=== PATIENT | female | born 1955 | race Hispanic/Latino ===

== ENCOUNTER 2025-05-23 09:47 | Emergency (ER) | payer MEDICARE ==
[~2025-05-23] VITALS: Ht 152.4 cm; Wt 62.0 kg
[2025-05-23] MEDS ORDERED: KETOROLAC TROMETHAMINE 15 MG/ML VIAL IV ONE (11:45)
[2025-05-23 12:02] LABS: BASOPHILS 0.7 % (0.1-1.2); EOSINOPHILS 0.7 % (0.7-5.8); LYMPHOCYTES 15.5 % (19.3-51.7); MCH 31.1 PG (25.6-32.2); MCHC 34.0 g/dL (32.2-35.5); MCV 91.3 fL (79.4-94.8); MONOCYTES 4.9 % (4.7-12.5); NEUTROPHILS 77.8 % (34.0-71.1); RBC 4.25 M/uL (3.93-5.22)
[2025-05-23 12:27] LABS: ALT (SGPT) 8 U/L (14-59); AST (SGOT) 10 U/L (15-37); GLOMERULAR FILTRATION RATE,EST 98 mL/min (>60); PROTEIN, TOTAL 7.3 g/dL (6.4-8.2); UREA NITROGEN 11 mg/dL (7-18)
[2025-05-23 12:40] LABS: INFLUENZA B NAA NEGATIVE (NEGATIVE); RESPIRATORY SYNCYTIAL VIR NAA NEGATIVE (NEGATIVE)
[2025-05-23] MEDS ORDERED: NAPROSYN500 MG PO (14:11)
[2025-05-23] MEDS ORDERED: LIDODERM1 EACH TOP (14:12)
[2025-05-23 14:15] VITALS: BP 113/52
--- NOTE | 2025-05-24 21:38 | EKG ---
[facility] [address] [facility] [place] [address] Signed Normal sinus rhythm Normal ECG No previous ECGs available Confirmed by Radha Patel MD () on 05/24/2025 9:38:34 PM Electronically Signed By: RADHA PATEL MD 05/24/25 2138 PATIENT NAME: [id number] Electrocardiogram DATE OF : 53 PHYSICIAN: RADHA PATEL MD REPORT #: [id number] REPORT IS CONFIDENTIAL AND NOT TO BE RELEASED WITHOUT AUTHORIZATION
== END 2025-05-23 14:13 | disposition home or self-care (01) ==
LOC: ED 09:47
PROVIDERS: Emergency Medicine
DX: M54.6 Pain in thoracic spine (principal)
CPT/HCPCS: 36415; 71045; 80053; 84484; 85025; 85379; 87502; 93005; 93010; 96374; 99284-25; J1885; U0002